=== PATIENT | male | born 1960 | race Asian ===

== ENCOUNTER 2021-06-26 11:14 | Emergency (ER) | payer BC ==
[~2021-06-26] VITALS: Ht 170.2 cm; Wt 74.8 kg
[2021-06-26 11:15] VITALS: BP_SYST 148
[2021-06-26] MEDS ORDERED: NAPR-688 PO (13:52)
[2021-06-26] MEDS ORDERED: LIDO700A30 TP (13:52)
[2021-06-26 14:36] VITALS: BP_SYST 138
== END 2021-06-26 14:37 | disposition home or self-care (01) ==
LOC: SED 11:14
DX: M54.50 Low back pain, unspecified (principal); M25.551 Pain in right hip; Z79.899 Other long term (current) drug therapy
CPT/HCPCS: 72100-TC; 73502; 99284

== ENCOUNTER 2023-05-26 11:49 | Emergency (ER) | payer BC ==
[~2023-05-26] VITALS: Ht 170.2 cm; Wt 81.2 kg
[~2023-05-26 11:49] MED LIST: LIDO700A30 TP; NAPR-688 PO
[2023-05-26 12:00] VITALS: BP_SYST 145; PULSE 89; RESP 19; TEMP 98; O2SAT 98
[2023-05-26 14:09] LABS: BASOPHILS % (AUTO) 0.6 % (0.0-2.0); EOSINOPHILS # (AUTO) 0.1 K/uL (0.0-0.4); EOSINOPHILS % (AUTO) 1.3 % (0.0-4.0); HEMATOCRIT 44.7 % (36-54); HEMOGLOBIN 15.2 g/dL (14.0-18.0); LYMPHOCYTES # (AUTO) 1.5 K/uL (1.0-5.5); LYMPHOCYTES % (AUTO) 19.5 % (20.5-51.5); MEAN CORPUSCULAR HEMOGLOBIN 30 pg (27-31); MEAN CORPUSCULAR HGB CONC 34 % (32-36); MEAN CORPUSCULAR VOLUME 89 fL (79.0-98.0); MONOCYTES # (AUTO) 0.8 K/uL (0.0-1.0); MONOCYTES % (AUTO) 10.6 % (1.7-9.3); NEUTROPHILS # (AUTO) 5.1 K/uL (1.8-7.7); PLATELET COUNT (AUTO) 259 K/uL (130-430); RED BLOOD CELL COUNT(AUTO) 5.02 MIL/uL (4.2-6.2); RED CELL DISTRIBUTION WIDTH 13.4 % (9.0-15.0); WHITE BLOOD COUNT (AUTO) 7.5 K/uL (4.8-10.8)
[2023-05-26 14:16] LABS: ANION GAP 9 (5-15); CALCIUM 9.6 mg/dL (8.4-11.0); CARBON DIOXIDE 29 mmol/L (23-29); CHLORIDE 103 mmol/L (98-107); CREATININE 0.82 mg/dL (0.55-1.30); GFR AFRICAN AMERICAN 122 mL/min (>90); GLUCOSE 90 mg/dL (74-106); POTASSIUM 4.1 mmol/L (3.5-5.1); SODIUM SERUM 141 mmol/L (136-145); UREA NITROGEN, BLOOD 12 mg/dL (8-21)
[2023-05-26 14:17] LABS: GFR NON AFRICAN-AMERICAN 101 mL/min (>90)
[2023-05-26 17:33] VITALS: BP_SYST 145; PULSE 89; RESP 19; TEMP 98; O2SAT 98
== END 2023-05-26 17:33 | disposition home or self-care (01) ==
LOC: SED 11:49
DX: R42 Dizziness and giddiness (principal); Z79.899 Other long term (current) drug therapy
CPT/HCPCS: 36415; 70450-TC; 71045; 76376; 80048; 83880; 84484; 85025; 93005; 99285